=== PATIENT | female | born 1940 | race Two or more races ===

== ENCOUNTER 2022-12-05 11:02 | Outpatient (CLI) | payer OTHER | END 2022-12-05 11:04 | disposition home or self-care (01) | LOC: NUCLEAR 11:02 | PROVIDERS: ATTEND Specialist | DX: I70.211 Atherosclerosis of native arteries of extremities with intermittent claudication, right leg (principal); I70.212 Atherosclerosis of native arteries of extremities with intermittent claudication, left leg ==